=== PATIENT | female | born 1980 | race Caucasian/White ===

== ENCOUNTER 2016-07-04 09:46 | Day surgery (SDC) | payer OTHER ==
[~2016-07-04] VITALS: Ht 144.8 cm; Wt 79.0 kg
[~2016-07-04 09:46] MED LIST: ABILIFY2 MG PO; GABAPENTIN300 MG PO; LAMICTAL100 MG PO; VENTOLIN HFA18 GM IH; ZANAFLEX4 MG PO
[2016-07-04 10:32] VITALS: BP 119/73
[2016-07-04] MEDS ORDERED: PERCOCET 5/31 TABLET PO (13:29)
[2016-07-04] MEDS ORDERED: MOTRIN800 MG PO (13:29)
[2016-07-04 14:50] VITALS: BP 134/70
[2016-07-04 15:25] VITALS: BP 136/78
== END 2016-07-04 15:15 | disposition home or self-care (01) ==
LOC: SDC 09:46
DX: Z30.2 Encounter for sterilization (principal); N92.0 Excessive and frequent menstruation with regular cycle; N93.8 Other specified abnormal uterine and vaginal bleeding; K66.0 Peritoneal adhesions (postprocedural) (postinfection); Z88.0 Allergy status to penicillin; F17.210 Nicotine dependence, cigarettes, uncomplicated; Z82.5 Family history of asthma and other chronic lower respiratory diseases; Z83.3 Family history of diabetes mellitus; Z82.49 Family history of ischemic heart disease and other diseases of the circulatory system; Z82.69 Family history of other diseases of the musculoskeletal system and connective tissue
CPT/HCPCS: 88305; J0330; J1885; J2250; J2405; J3010; J7120

== ENCOUNTER 2016-07-08 22:16 | Emergency (ER) | payer OTHER ==
[~2016-07-08] VITALS: Ht 147.3 cm; Wt 78.3 kg
[~2016-07-08 22:16] MED LIST changes: +MOTRIN800 MG PO; +PERCOCET 5/31 TABLET PO
[2016-07-08 23:16] LABS: HEMATOCRIT 36.5 % (36.0-46.0); MCH 29.3 PG (29.0-34.0); MCHC 31.5 G/DL (30.0-36.0); MCV 93.1 FL (83-99); MEAN PLAT.VOLUME 9.1 uM^3 (9.5-12.4); PLATELET COUNT 396 K/uL (156-360); RBC DIS.WIDTH-CV 15.3 % (11.8-14.6); RBC DIS.WIDTH-SD 51.9 % (39-53); RED BLOOD COUNT 3.92 M/uL (3.80-5.20); WHITE BLOOD COUNT 13.9 K/uL (4.1-10.2)
[2016-07-08 23:25] LABS: CHLORIDE 109 mEq/L (99-109); POTASSIUM 5.5 mEq/L (3.7-5.4); SODIUM 143 mEq/L (136-147)
[2016-07-08 23:27] LABS: GLUCOSE 111 mg/dL (70-99)
[2016-07-08 23:28] LABS: ANION GAP 9 MEQ/L (2-14)
[2016-07-08 23:29] LABS: TOTAL BILIRUBIN 0.2 mg/dL (0.0-1.0)
[2016-07-08 23:31] LABS: ADD MIUA? YES; BILIRUBIN NEGATIVE; BLOOD NEGATIVE; COLOR YELLOW ((YELLOW)); GLUCOSE (STRIP) NEGATIVE; KETONES NEGATIVE; LEUKOCYTES MODERATE; NITRITE NEGATIVE; PROTEIN (STRIP) NEGATIVE; UROBILINOGEN 0.2 MG/DL (0.2-1.0)
[2016-07-08 23:31] LABS: ALKALINE PHOSPHATASE 69 IU/L (3-129); GFR ESTIMATE (CALCULATED) > 59 mL/min/
[2016-07-08 23:32] LABS: UREA NITROGEN (BUN) 11 mg/dL (9-23)
[2016-07-08 23:34] LABS: LIPASE 19 U/L (1.0-51.0)
[2016-07-08 23:44] LABS: QUANTITATIVE HCG < 4.0 MIU/ML
[2016-07-08 23:53] LABS: BACTERIA NONE SEEN /HPF; EPITHELIAL CELLS 1+ /HPF; MUCUS TRACE /LPF; RED BLOOD CELLS 0-5 /HPF (0-5); UCUL ADDED? NO
[2016-07-09] MEDS ORDERED: NORCO 5/3251 TABLET PO (01:25)
[2016-07-09 01:53] VITALS: BP 124/67
== END 2016-07-09 01:54 | disposition home or self-care (01) ==
LOC: EME 22:16
PROVIDERS: Emergency Medicine
DX: G89.18 Other acute postprocedural pain (principal); R10.9 Unspecified abdominal pain; E78.5 Hyperlipidemia, unspecified; K21.9 Gastro-esophageal reflux disease without esophagitis; F17.200 Nicotine dependence, unspecified, uncomplicated
CPT/HCPCS: 74177; 80053; 81003; 83690; 84702; 85027; 99281; 99285; J2270; J2405; J7030

== ENCOUNTER 2016-09-24 20:28 | Emergency (ER) | payer OTHER ==
[~2016-09-24] VITALS: Ht 144.8 cm; Wt 81.8 kg
[~2016-09-24 20:28] MED LIST changes: +NORCO 5/3251 TABLET PO
[2016-09-24] MEDS ORDERED: PREDNISONE10 M1 PO (23:05)
[2016-09-24] MEDS ORDERED: TYLENOL WITH C1 EACH PO (23:05)
[2016-09-24 23:13] VITALS: BP 130/89
== END 2016-09-24 23:14 | disposition home or self-care (01) ==
LOC: RME 20:28 → EME 20:28 → RME 23:14
DX: M54.42 Lumbago with sciatica, left side (principal); J45.909 Unspecified asthma, uncomplicated
CPT/HCPCS: 99281; 99283; J1885

== ENCOUNTER 2016-11-20 19:59 | Emergency (ER) | payer OTHER ==
[~2016-11-20] VITALS: Ht 144.8 cm; Wt 89.2 kg
[~2016-11-20 19:59] MED LIST changes: +PREDNISONE10 M1 PO; +TYLENOL WITH C1 EACH PO
[2016-11-20 20:03] VITALS: BP 138/100
[2016-11-20] MEDS ORDERED: NAPROXEN500 MG PO (23:38)
== END 2016-11-21 00:28 | disposition home or self-care (01) ==
LOC: EME 19:59
DX: S93.602A Unspecified sprain of left foot, initial encounter (principal); X58.XXXA Exposure to other specified factors, initial encounter; Y92.003 Bedroom of unspecified non-institutional (private) residence as the place of occurrence of the external cause; F17.200 Nicotine dependence, unspecified, uncomplicated
CPT/HCPCS: 73630; 99281; 99284

== ENCOUNTER 2016-12-03 14:51 | Emergency (ER) | payer OTHER ==
[~2016-12-03] VITALS: Ht 147.3 cm; Wt 85.5 kg
[~2016-12-03 14:51] MED LIST changes: +NAPROXEN500 MG PO
[2016-12-03 15:13] VITALS: BP 123/60
== END 2016-12-03 18:41 | disposition left against medical advice (07) ==
LOC: EME 14:51
DX: K08.89 Other specified disorders of teeth and supporting structures (principal); Z53.21 Procedure and treatment not carried out due to patient leaving prior to being seen by health care provider

== ENCOUNTER 2017-03-18 21:29 | Emergency (ER) | payer OTHER ==
[~2017-03-18] VITALS: Ht 149.9 cm; Wt 82.7 kg
[2017-03-18 22:37] LABS: HEMOGLOBIN 14.2 G/DL (11.9-15.5); MCH 31.5 PG (29.0-34.0); MCV 95.3 FL (83-99); PLATELET COUNT 316 K/uL (156-360); RBC DIS.WIDTH-CV 14.6 % (11.8-14.6); RBC DIS.WIDTH-SD 50.6 % (39-53); RED BLOOD COUNT 4.51 M/uL (3.80-5.20); WHITE BLOOD COUNT 6.4 K/uL (4.1-10.2)
[2017-03-18 22:47] LABS: CHLORIDE 110 mEq/L (99-109); POTASSIUM 3.4 mEq/L (3.7-5.4); SODIUM 143 mEq/L (136-147)
[2017-03-18 22:48] LABS: GLUCOSE 103 mg/dL (70-99)
[2017-03-18 22:52] LABS: CREATININE 0.7 mg/dL (0.6-1.3); GFR ESTIMATE (CALCULATED) > 59 mL/min/
[2017-03-18 22:53] LABS: UREA NITROGEN (BUN) 13 mg/dL (9-23)
[2017-03-19] MEDS ORDERED: ZITHROMAX Z-PA250 MG PO (00:35)
[2017-03-19] MEDS ORDERED: ROBITUSSIN AC,T10 ML PO (00:35)
[2017-03-19 01:05] VITALS: BP 127/94
== END 2017-03-19 00:35 | disposition home or self-care (01) ==
LOC: EME 21:29
DX: J20.9 Acute bronchitis, unspecified (principal); R04.2 Hemoptysis; E78.5 Hyperlipidemia, unspecified; G71.11 Myotonic muscular dystrophy; I09.1 Rheumatic diseases of endocardium, valve unspecified; K21.9 Gastro-esophageal reflux disease without esophagitis; F32.9 Major depressive disorder, single episode, unspecified; F17.200 Nicotine dependence, unspecified, uncomplicated; Z88.0 Allergy status to penicillin
CPT/HCPCS: 71046; 71275; 80048; 85027; 85379; 94640; 99281; 99285; J1100

== ENCOUNTER 2017-03-20 22:51 | Emergency (ER) | payer OTHER ==
[~2017-03-20] VITALS: Ht 149.9 cm; Wt 81.5 kg
[~2017-03-20 22:51] MED LIST changes: +ROBITUSSIN AC,T10 ML PO; +ZITHROMAX Z-PA250 MG PO
[2017-03-21] MEDS ORDERED: SUDAFED 12-HOU120 MG PO (03:54)
[2017-03-21] MEDS ORDERED: MEDROL DOSEPAK4 MG PO (03:54)
[2017-03-21] MEDS ORDERED: TESSALON200 MG PO (03:54)
[2017-03-21 04:24] VITALS: BP 120/80
== END 2017-03-21 04:25 | disposition home or self-care (01) ==
LOC: EME 22:51
PROVIDERS: Emergency Medicine
DX: J45.909 Unspecified asthma, uncomplicated (principal); J01.90 Acute sinusitis, unspecified; F17.200 Nicotine dependence, unspecified, uncomplicated; I09.1 Rheumatic diseases of endocardium, valve unspecified; E78.5 Hyperlipidemia, unspecified; G71.11 Myotonic muscular dystrophy; K21.9 Gastro-esophageal reflux disease without esophagitis; F32.9 Major depressive disorder, single episode, unspecified; Z88.0 Allergy status to penicillin
CPT/HCPCS: 71046; 87502; 94640; 99281; 99282